=== PATIENT | female | born 1985 | race African-American/Black ===

== ENCOUNTER 2016-05-12 04:23 | Emergency (ER) | payer MEDICAID ==
[~2016-05-12] VITALS: Ht 175.3 cm; Wt 111.7 kg
[2016-05-12 04:30] VITALS: BP 125/80; PULSE 98; RESP 18; TEMP 98.7; O2SAT 99
[2016-05-12 05:44] VITALS: BP 128/80; PULSE 98; RESP 18; TEMP 98.7; O2SAT 99
[2016-05-12 06:02] VITALS: BP 146/71; PULSE 81; RESP 18; TEMP 98.7; O2SAT 100
--- NOTE | 2016-05-12 06:06 | PD ---
HPI Chief Complaint: Cold / Flu Symptoms Time Seen by Provider: 05:59 Travel History International Travel<30 days: No Contact w/Intl Traveler<30days: No Traveled to known affect area: No History of Present Illness HPI 31-year-old female presents to the emergency department private transportation for 2 weeks of intermittent dry cough. Patient has used multiple over-the- counter medications to suppress cough but states they have not been helpful. Patient does have a history of asthma does have a rescue inhaler but has not used her albuterol. Patient's does not thought that she needed to use it for the dry cough. Patient has had no fever or chills. No productive cough. No sinus pressure drainage. No sore throat except with mild irritation associated with cough no ear pain has had mild laryngitis. Patient has no shortness of breath at this time. Patient's had no chest pain. No report of abdominal pain or nausea vomiting flank pain diarrhea or dysuria. Patient does smoke cigarettes. Last with menses was 05/08/16. Patient is visiting from out of town. [facility] Past Medical History Narrative Medical Asthma, tobacco use, alcohol use, nursing notes reviewed Asthma: Yes (History and has Inhaler) Tetanus Vaccination: > 5 Years Influenza Vaccination: No ?: Unknown LMP: 05/08/2016 Social History Alcohol Use: Yes (Socially) Tobacco Use: Yes (Socially) Substance Use: No Allergies-Medications (Allergen,Severity, Reaction): Coded Allergies: Penicillin (Verified Allergy, Intermediate, Hives, 05/12/16) Reported Meds & Prescriptions Reported Meds & Active Scripts Active Medrol Dosepak (Methylprednisolone) 4 Mg Dspk 4 Mg PO DIRECTED Per Pharmacist direction Kaleb Mcwilliams (Benzonatate) 100 Mg Cap 100 Mg PO TID PRN Narrative Medication Rescue inhaler Review of Systems Except as stated in HPI: all other systems reviewed are Neg General / Constitutional: No: Fever, Chills HENT: Positive: Sore Throat (mild), Congestion Cardiovascular: No: Chest Pain or Discomfort, Syncope Respiratory: Positive: Cough, No: Shortness of Breath, Wheezing, Hemoptysis, Pleuritic Pain Gastrointestinal: No: Vomiting, Abdominal Pain Genitourinary: No: Flank Pain Musculoskeletal: No: Myalgias, Arthralgias Skin: No Rash Neurologic: No: Weakness Psychiatric: No: Anxiety Endocrine: No: Heat Intolerance Hematologic/Lymphatic: No: Easy Bruising Physical Exam Narrative GENERAL: Well-developed well-nourished female in no acute distress no respiratory distress SKIN: Warm and dry. HEAD: Normocephalic. EYES: No scleral icterus. No injection or drainage. NECK: Supple, trachea midline. No JVD or lymphadenopathy. CARDIOVASCULAR: Regular rate and rhythm without murmurs, gallops, or rubs. RESPIRATORY: Breath sounds equal bilaterally. No accessory muscle use. GASTROINTESTINAL: Abdomen soft, non-tender, nondistended. MUSCULOSKELETAL: No cyanosis, or edema. BACK: Nontender without obvious deformity. No CVA tenderness. Data Data Last Documented VS Vital Signs Date Time Temp Pulse Resp B/P Pulse Ox O2 Delivery O2 Flow Rate FiO2 05/12/16 05:51 18 100 Room Air 05/12/16 05:44 98.7 98 128/80 Orders Ed Urine Pregnancytest Poc (05/12/16 06:08) MDM Medical Decision Making Medical Screen Exam Complete: Yes Emergency Medical Condition: Yes Medical Record Reviewed: Yes Interpretation(s) poc hcg: negative Differential Diagnosis Cough, viral syndrome, bronchitis, laryngitis, pneumonia Narrative Course Patient is visiting from out of town requesting prescription lozenges; admits that she has an inhaler that is not ; patient will be given prescription for a Medrol Dosepak and Tessalon Perles Diagnosis Primary Impression: Cough Referrals: Primary Care Physician call for appointment Patient Instructions: General Instructions Additional Instructions: Increase fluid hydration Use inhaler as prescribed as needed for cough/wheezing associated with history of asthma Complete steroid course Use cough medication as prescribed Return to the emergency department for any concerns or change in condition Monitor temperature for fever take acetaminophen/Tylenol as often as every 4 hours as needed for fever 100.4F or greater Follow-up with your primary care provider Med/Other Pt SpecificInfo: Prescription(s) given Scripts Methylprednisolone Dosepak (Medrol Dosepak)4 Mg Dspk4 Mg PO DIRECTED #1 DSPK Ref 0 Per Pharmacist direction Prov:Mayela Cerda MD 05/12/16 Benzonatate (Tessalon Perles)100 Mg [id number] Mg PO TID PRN (COUGH) #12 CAP Ref 0 Prov:Mayela Cerda MD 05/12/16 Disposition: 01 DISCHARGE HOME Condition: Stable PrashantMayela H. MD May 12, 2016 06:06 Condition: Mayela Ewing MD May 12, 2016 06:06
[2016-05-12] MEDS ORDERED: BENZ100 PO (06:08)
[2016-05-12] MEDS ORDERED: MEDR4PAK PO (06:08)
[2016-05-12] MEDS ORDERED: ABIL5TAB6 PO (06:55)
[2016-05-12] MEDS ORDERED: MUCI600T PO (06:55)
[2016-05-12] MEDS ORDERED: DOXY1LIQ3 PO (06:55)
== END 2016-05-12 06:56 | disposition home or self-care (01) ==
LOC: PHED 04:23
DX: R05 Cough (principal); J45.909 Unspecified asthma, uncomplicated; Z72.0 Tobacco use
CPT/HCPCS: 84703; 99283